=== PATIENT | female | born 2000 | race African-American/Black ===

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

== ENCOUNTER 2020-03-07 20:01 | Emergency (ER) | payer MEDICAID ==
[~2020-03-07] VITALS: Ht 162.6 cm; Wt 58.0 kg
[2020-03-07] MEDS ORDERED: SODIUM CHLORIDE 0.9% 1,000 ML IV ONE ×2 (21:15→22:45)
[2020-03-07 22:09] LABS: BASOPHILS % 0.3 % (0.0-2.0); EOSINOPHILS % 0.1 % (0.0-5.0); HEMATOCRIT. 42.3 % (36.0-48.0); HEMOGLOBIN. 14.3 g/dL (12.0-16.0); LYMPHOCYTES % 11.2 % (20.0-50.0); MEAN PLATELET VOLUME 8.5 fl (7.4-10.4); MONOCYTES % 3.3 % (2.0-8.0); NEUTROPHILS % 85.1 % (40.0-76.0); PLATELET 312 x1000/uL (130-400); RED CELL DISTRIBUTION WIDTH 13.2 % (11.6-14.6)
[2020-03-07 22:16] LABS: CHLORIDE 108 mEq/L (98-107); CLARITY URINE CLEAR (CLEAR); COLOR URINE YELLOW (YELLOW); KETONES URINE 2+ (NEGATIVE); LEUKOCYTE ESTERASE URINE NEGATIVE (NEGATIVE); NITRITE URINE NEGATIVE (NEGATIVE); OCCULT BLOOD URINE 1+ (NEGATIVE); PROTEIN URINE 2+ (NEGATIVE); SPECIFIC GRAVITY URINE 1.038 (1.005-1.030)
[2020-03-07 22:20] LABS: ETHANOL BLOOD < 10 mg/dL
[2020-03-07 22:24] LABS: HCG SCREEN NEGATIVE
[2020-03-07 22:40] LABS: *AMPHETAMINES SCREEN URINE NEGATIVE (NEGATIVE); *BARBITURATES SCREEN URINE NEGATIVE (NEGATIVE); *BENZODIAZEPINES SCREEN URINE NEGATIVE (NEGATIVE); *COCAINE SCREEN URINE NEGATIVE (NEGATIVE)
[2020-03-07 22:41] LABS: METHADONE URINE SCREEN NEGATIVE (NEGATIVE); OPIATES URINE SCREEN NEGATIVE (NEGATIVE); PHENCYCLIDINE URINE SCREEN NEGATIVE (NEGATIVE)
[2020-03-07 22:45] LABS: CANNABINOID URINE SCREEN PRESUMTIVE POSITIVE (NEGATIVE)
[2020-03-08] MEDS: OLANZAPINE 10MG TABLET PO SCH ×2 (01:45→09:18)
[2020-03-08] MEDS ORDERED: TRAZODONE HCL 50MG TABLET PO SCH (03:00)
[2020-03-08] MEDS ORDERED: DIPHENHYDRAMINE 50MG CAPSULE PO ONE (04:00)
[2020-03-08] MEDS ORDERED: LORAZEPAM 1MG TABLET PO ONE (04:45)
[2020-03-08] MEDS ORDERED: LORAZEPAM 2MG/ML CPJ IM ONE (06:15)
[2020-03-08] MEDS ORDERED: OLANZAPINE 10 MG/VIAL IM ONE (06:45)
[2020-03-08] MEDS ORDERED: DIPHENHYDRAMINE 50MG/ML VIAL IM ONE (07:45)
[2020-03-08] MEDS ORDERED: LORAZEPAM 2MG/ML CPJ IV ONE (11:15)
[2020-03-09] MEDS: OLANZAPINE 10MG TABLET PO SCH (11:05)
[2020-03-10] MEDS: OLANZAPINE 10MG TABLET PO SCH (09:42)
[2020-03-11 09:30] VITALS: BP 119/78
== END 2020-03-11 10:00 | disposition home or self-care (01) ==
LOC: ER 20:01
DX: F23 Brief psychotic disorder (principal); F19.159 Other psychoactive substance abuse with psychoactive substance-induced psychotic disorder, unspecified; F12.10 Cannabis abuse, uncomplicated; F81.81 Disorder of written expression; R41.82 Altered mental status, unspecified; R00.0 Tachycardia, unspecified; R45.851 Suicidal ideations; R45.1 Restlessness and agitation; Z98.890 Other specified postprocedural states
CPT/HCPCS: 36415; 71045; 80053; 80305; 80320; 81003; 84703; 85025; 93005; 96361; 96372; 96374; 99285; J1200; J2060; J3490; J7030; Q0163; G0480

== ENCOUNTER 2022-01-20 09:16 | Emergency (ER) | payer MEDICAID ==
[~2022-01-20] VITALS: Ht 160 cm; Wt 55.0 kg
[2022-01-20 10:06] LABS: BASOPHILS % 0.4 % (0.0-2.0); EOSINOPHILS % 3.2 % (0.0-5.0); HEMATOCRIT. 39.8 % (36.0-48.0); HEMOGLOBIN. 13.3 g/dL (12.0-16.0); LYMPHOCYTES % 31.2 % (20.0-50.0); MEAN CORPUSCULAR VOLUME 93.2 fL (81.0-99.0); MEAN PLATELET VOLUME 7.7 fl (7.4-10.4); MONOCYTES % 5.3 % (2.0-8.0); NEUTROPHILS % 59.9 % (40.0-76.0); PLATELET 274 x1000/uL (130-400); RED BLOOD CELL COUNT 4.27 mill/uL (4.2-5.4); RED CELL DISTRIBUTION WIDTH 13.4 % (11.6-14.6)
[2022-01-20 10:13] LABS: CHLORIDE 107 mEq/L (98-107)
[2022-01-20 10:24] LABS: B-HCG QUANTITATIVE < 1 mIU/mL (<3)
[2022-01-20 11:34] LABS: CLARITY URINE CLEAR (CLEAR); COLOR URINE YELLOW (YELLOW); KETONES URINE NEGATIVE (NEGATIVE); LEUKOCYTE ESTERASE URINE 1+ (NEGATIVE); NITRITE URINE NEGATIVE (NEGATIVE); OCCULT BLOOD URINE 3+ (NEGATIVE); PH URINE 5.5 (4.5-8.0); PROTEIN URINE 1+ (NEGATIVE); SPECIFIC GRAVITY URINE 1.026 (1.005-1.030)
[2022-01-20] MEDS ORDERED: CEPH500C2 MT (13:48)
[2022-01-20 14:00] VITALS: BP 113/71
== END 2022-01-20 14:05 | disposition home or self-care (01) ==
LOC: ER 09:16
DX: N93.8 Other specified abnormal uterine and vaginal bleeding (principal)
CPT/HCPCS: 36415; 76830; 76856; 80053; 81003; 84702; 85025; 86850; 86900; 99284